=== PATIENT | male | born 1945 | race Caucasian/White ===

== ENCOUNTER 2021-12-22 14:45 | Emergency (ER) | payer OTHER ==
[2021-12-22 15:25] VITALS: BMI 23.6
[2021-12-22 18:24] LABS: HEMATOCRIT 33.1 % (35.4-49); HEMOGLOBIN 11.5 G/dL (11.7-16.9); MCH 34.5 pg (25.7-33.7); MCHC 34.7 g/dl (32.0-35.9); MEAN CELL VOLUME 99.3 fl (80-96); MEAN PLT VOLUME 7.4 fl (7.5-11.1); PLATELET COUNT 254.5 10^3/uL (134-434); RBC 3.33 10^6/uL (4.00-5.60); RDW 14.2 % (11.9-15.9); WHITE BLOOD COUNT 7.5 10^3/uL (4.0-10.8)
[2021-12-22 18:33] LABS: INR 0.96 (0.83-1.09)
[2021-12-22 18:35] LABS: ACTIVATED PTT 31.2 SECONDS (25.2-36.5)
[2021-12-22 18:39] LABS: BILIRUBIN,TOTAL 0.8 mg/dl (0.2-1); CALCIUM 9.2 mg/dl (8.5-10); CREATININE 3.5 mg/dl (0.55-1.3); TOT PROT 6.6 g/dl (6.4-8.2)
[2021-12-22 18:45] VITALS: TEMP 98.5
[2021-12-22 18:50] VITALS: BP 133/77; PULSE 80; RESP 19
[2021-12-22 19:00] LABS: PLATELET ESTIMATE ADEQUATE
== END 2021-12-22 19:38 | disposition short-term general hospital (02) ==
LOC: FER 14:45
DX: S06.360A Traumatic hemorrhage of cerebrum, unspecified, without loss of consciousness, initial encounter (principal); W19.XXXA Unspecified fall, initial encounter
CPT/HCPCS: 36415; 70450-TC; 71045-TC-FY; 80053; 85025; 85610; 85730; 86850; 86900; 86901; 93005; 99285-25; C9803-CS; U0003; U0005